=== PATIENT | female | born 1960 | race Caucasian/White ===

== ENCOUNTER → 2024-01-16 | Day surgery (SDC) | payer MEDICARE, OTHER ==
[2024-01-08 13:02] LABS: BASOPHILS # (AUTO) 0.1 (0.0-0.1); BASOPHILS % 1.2 % (0.0-1.0); EOSINOPHILS # (AUTO) 0.5 (0.0-0.4); EOSINOPHILS % 4.6 % (0.0-6.0); HEMATOCRIT 44.4 % (34.2-44.1); HEMOGLOBIN 13.7 g/dL (12.0-16.0); LYMPHOCYTES # (AUTO) 2.8 (1.0-3.2); LYMPHOCYTES % 27.2 % (18.0-39.1); MEAN CORPUSCULAR HEMOGLOBIN 25.6 pg (28-32); MEAN CORPUSCULAR HGB CONC 30.9 g/dL (31-35); MONOCYTES # (AUTO) 0.6 (0.2-0.8); MONOCYTES % 5.6 % (4.4-11.3); NEUTROPHILS # (AUTO) 6.3 (2.1-6.9); PLATELET COUNT 274 x10e3/uL (140-360); RED BLOOD COUNT 5.35 x10e6/uL (3.6-5.1); WHITE BLOOD COUNT 10.36 x10e3/uL (4.8-10.8)
[2024-01-08 13:19] LABS: ANION GAP 16.8 mmol/L (8-16); CALCIUM 9.8 mg/dL (8.4-10.2); CREATININE, SERUM 1.38 mg/dL (0.57-1.11); POTASSIUM 3.8 mmol/L (3.5-5.1)
[~2024-01-16] MED LIST: ACETAMINOPHEN 1000 MG/100 ML IV ONE; ALBUTEROL/IPRATROPIUM 3 ML NEB ONE; ALLEGRA-D 24 H1 EACH PO; AMARYL2 MG PO; AMLODIPINE BESYL5 MG PO; ASPIRIN81 MG PO; BENADRYL25 M1 PO; CALCIUM W/D3 PO; COQ-10100 MG PO; COZAAR50 MG PO; CYCLOBENZAPRINE5 MG PO; FARXIGA10 MG PO; FENTANYL CITRATE/PF 100MCG/2 ML INJ ONE; FEOSOL325 MG PO; FLONASE ALLERG9.9 ML INH; GABAPENTIN100 MG PO; LEVEMIR100 UNIT/1 SC; LIDOCAINE 1% W/EPINEPHRINE 20 ML VIAL ONE; LIDOCAINE HCL 2% LOCAL INJ 5 ML SDV VIAL INJ ONE; LIPITOR10 MG PO; LYUMJEV100 UNIT/1 SC; METOCLOPRAMIDE HCL 10 MG/2ML VIAL ONE; MONTELUKAST SOD10 MG PO; MYDRIACYL15 ML OP; MYRBETRIQ25 MG PO; NEXIUM40 MG PO; OMEPRAZOLE40 MG PO; ONDANSETRON HCL INJ 2MG/ML 2ML 2 MG/ML VIAL ONE; ONDANSETRON ODT4 MG PO; PROPOFOL IV EMULSION 10 MG/ML 20 ML VIAL ONE; QUESTRAN PACKET4 GM PO; ROCURONIUM BROMIDE 10 MG/ML 5ML VIAL IV ONE; RYBELSUS14 MG PO; SERTRALINE HCL100 MG PO; SEVOFLURANE INHAL SOLN 250 ML PEN BTL ONE; SILVER SULFADIAZINE 50GM CREAM ONE; SUCCINYLCHOLINE CHLORIDE 20 MG/ML 10ML VIAL ONE; SUGAMMADEX SODIUM 200 MG/2 ML VIAL IV ONE; TRESIBA100 UNIT/1 SC; TYLENOL #3 PO; ULTRACET PO; ULTRAM 50MG50 MG PO; ZOLOFT100 MG PO
[2024-01-16] MEDS: CEFAZOLIN SODIUM 2 GM ONE (06:12)
[2024-01-16] MEDS: LACTATED RINGER'S 1,000 ML ONE (06:12)
[2024-01-16 10:00] VITALS: BP 118/65; PULSE 83; RESP 18; O2SAT 98
== END | disposition home or self-care (01) ==
LOC: OR 05:28
PROVIDERS: ATTEND Podiatrist Foot Surgery
DX: L94.2 Calcinosis cutis (principal); E11.22 Type 2 diabetes mellitus with diabetic chronic kidney disease; I12.9 Hypertensive chronic kidney disease with stage 1 through stage 4 chronic kidney disease, or unspecified chronic kidney disease; N18.30 Chronic kidney disease, stage 3 unspecified; K21.9 Gastro-esophageal reflux disease without esophagitis; F32.A Depression, unspecified; C95.90 Leukemia, unspecified not having achieved remission; I45.10 Unspecified right bundle-branch block; I44.4 Left anterior fascicular block; E78.5 Hyperlipidemia, unspecified; G89.29 Other chronic pain; R56.9 Unspecified convulsions; F41.9 Anxiety disorder, unspecified; T78.40XA Allergy, unspecified, initial encounter; X58.XXXA Exposure to other specified factors, initial encounter; Z88.8 Allergy status to other drugs, medicaments and biological substances; Z01.810 Encounter for preprocedural cardiovascular examination; Z01.812 Encounter for preprocedural laboratory examination; Z01.818 Encounter for other preprocedural examination; Z79.60 Long term (current) use of unspecified immunomodulators and immunosuppressants; Z79.82 Long term (current) use of aspirin; Z79.84 Long term (current) use of oral hypoglycemic drugs; Z79.85 Long-term (current) use of injectable non-insulin antidiabetic drugs; Z79.4 Long term (current) use of insulin; Z79.899 Other long term (current) drug therapy; Z92.3 Personal history of irradiation
CPT/HCPCS: 11423; 36415; 71046; 80048; 85025; 88305; 93005; J0131; J0330; J0690; J2001; J2405; J2704; J2765; J3010; J7121; 88304